=== PATIENT | female | born 1935 | race Caucasian/White ===

== ENCOUNTER 2017-06-11 16:02 | Inpatient (IN) ==
[2017-06-11] MEDS ORDERED: NS 1,000 ML IV ONE (16:16)
--- NOTE | 2017-06-11 16:41 | Diag Imaging Result Doc PS360 ---
EXAM: HEAD W/O CONTRAST HISTORY: left lower vision loss TECHNIQUE: Dose reduction protocol COMPARISON: None. FINDINGS: No parenchymal hemorrhage. No epidural or subdural hematoma. No subarachnoid hemorrhage. No mass identified on this noncontrasted exam. No hydrocephalus. There is diffuse atrophy. Chronic microvascular ischemic changes with old lacunes. No sinus opacification. IMPRESSION: 1.No hemorrhage 2.Atrophy with old lacunes. Electronically signed by Saad Cho 06/11/2017 4:39 PM
--- NOTE | 2017-06-11 16:42 | Diag Imaging Result Doc PS360 ---
EXAM: CHEST-2 VIEWS HISTORY: CP TECHNIQUE: COMPARISON: None. FINDINGS: The lungs are well expanded. The heart is not enlarged. The vessels are not distended. There are no infiltrates. No pleural effusions. IMPRESSION: No acute abnormality. Electronically signed by Saad Cho 06/11/2017 4:39 PM
[2017-06-11] MEDS ORDERED: ASPIRIN PO ONE (16:46)
--- NOTE | 2017-06-11 16:56 | PROVIDER DOCUMENTATION ---
HPI-General Adult - General Chief Complaint: Stroke-Like Symptoms Stated Complaint: stroke like sx Time Seen by Provider: 06/11/17 16:15 Source: patient Allergies/Adverse Reactions: Patient Allergies Allergy/AdvReac Type Severity Reaction Status Date / Time codeine AdvReac HEADACHE Verified 06/11/17 16:54 Home Medications: Home Medication List Medication Instructions Recorded Confirmed Last Taken Type Cyanocobalamin (Vitamin B-12) 2,500 mcg PO DAILY 06/11/17 06/11/17 06/11/17 History [Vitamin B12] Indapamide 2.5 mg PO DAILY 06/11/17 06/11/17 06/11/17 History Levothyroxine [Synthroid] 125 mcg PO DAILY 06/11/17 06/11/17 06/11/17 History Lisinopril 40 mg PO BID 06/11/17 06/11/17 06/11/17 History Metoprolol [Lopressor] 50 mg PO BID 06/11/17 06/11/17 06/11/17 History PRAVAstatin [Pravachol] 40 mg PO DAILY 06/11/17 06/11/17 06/11/17 History - History of Present Illness -Gen Adult Nature of Presenting Problems: 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 She denies headache, cp, dyspnea, paresthesias, gait problems, injury. Eye history of cataracts. No CVA history. Location of Pain/Injury: reports: none Review of Systems - Adult - REVIEW OF SYSTEMS - ADULT Constitutional: reports: no symptoms reported. denies: chills, fatique Eyes: reports: see HPI, decreased vision. denies: double vision, eye pain Ears, Nose, Mouth & Throat: reports: no symptoms reported Cardiovascular: reports: no symptoms reported. denies: chest pain, orthopnea, syncope Respiratory: reports: no symptoms reported. denies: cough, wheezing Gastrointestinal: reports: no symptoms reported Genitourinary: reports: no symptoms reported Musculoskeletal: reports: no symptoms reported Integumentary: reports: no symptoms reported Neurological: reports: no symptoms reported. denies: ataxia, headache/migraines , loss of balance, numbness, paresthesia, syncope Psychiatric: reports: no symptoms reported Endocrine: reports: no symptoms reported Hematologic/Lymphatic: reports: no symptoms reported Allergic/Immunologic: reports: no symptoms reported All Other Systems: Reviewed and Negative Past History - Adult - PAST MEDICAL HISTORY-ADULT Review of Records: reports: Old Records Reviewed, Nursing Assessment Review, Medications Reviewed, Social history reviewed & non-contributory. Major Childhood Illnesses: reports: denies history Cardiovascular: reports: HTN Respiratory: reports: denies history Gastrointestinal: reports: denies history Obstetrical/Gynecological: reports: denies history Genitourinary: reports: denies history Musculoskeletal: reports: denies history Neurological: reports: denies history Endocrine/Immune: reports: denies history Other Conditions: reports: denies history - IMMUNIZATION STATUS Childhood Immunizations: See Nurse Assessment Flu Vaccine: See Nurse Assessment - FAMILY HISTORY Family History: reviewed, not pertinent - SOCIAL HISTORY Smoking: denies Substance Use: none/never Living Situation: family Physical Exam-General - PHYSICAL EXAM-ADULT Initial Vital Signs Reviewed: Yes - CONSTITUTIONAL General Appearance: appears well, alert, no apparent distress - EYES Eyes: PERRL/EOMI, pink conjunctivae, other (left lower visual field deficit in both eyes.). negative: anisocoria, EOM palsy - HEAD, EARS, NOSE, MOUTH & THROAT HENMT: normocephalic/atraumatic - NECK Neck: non-tender - RESPIRATORY Respiratory: lungs clear, normal breath sounds - CARDIOVASCULAR Cardiovascular: normal peripheral pulses, regular rate, rhythm - LYMPHATIC Lymphatic: no adenopathy - MUSCULOSKELETAL Back Exam: normal inspection Extremity: normal range of motion, non-tender. 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 negative: abnormal gait, facial droop, focal weakness, motor weakness - PSYCHIATRIC Psych/Mental Status: normal mood/affect, oriented x 3 Progress - PLAN OF CARE/RESULTS Progress/Plan/Lab Results: Vital Signs - 8 hr 06/11/17 16:16 Temperature 98.4 F Pulse Rate 73 Respiratory Rate 16 Blood Pressure 203/60 O2 Sat by Pulse Oximetry 97 Orders Category Date Time Status Cardiac Monitoring DIRECTED Care 06/11/17 16:16 Active Saline Loc NOW Care 06/11/17 16:16 Active CHEST-2 VIEWS [RAD] Stat Exams 06/11/17 16:16 Completed HEAD W/O CONTRAST [CT] Stat Exams 06/11/17 16:16 Completed CBC WITH ELECTRONIC DIFF [HEME] Stat Lab 06/11/17 16:16 Uncollected CK PROFILE [SP CHEM] Stat Lab 06/11/17 16:16 Uncollected COMPREHENSIVE METABOLIC PANEL [CHEM] Stat Lab 06/11/17 16:16 Uncollected PROTIME WITH INR [COAG] Stat Lab 06/11/17 16:16 Uncollected PTT [COAG] Stat Lab 06/11/17 16:16 Uncollected SED RATE [HEME] Stat Lab 06/11/17 16:16 Uncollected TROPONIN T Stat Lab 06/11/17 16:16 Uncollected 0.9% Sodium Chloride Inj [Ns] 1,000 ml Med 06/11/17 16:16 Active IV 999 mls/hr Aspirin Med 06/11/17 16:46 Discontinued 325 mg PO NOW ONE EKG [EKG] Stat Ther 06/11/17 16:16 Ordered 1650: pt reports improvement in vision in right eye. Result Diagrams: 06/11/17 17:05 06/11/17 17:07 - CT/MRI 1 CT Study: Head Impression: Normal, See EMR Report CT Results: NAF - CONSULTS/PCP/HOSPITALIST Notification #1 *Consult/PCP/Hospitalist*: Dr. Venegas Time Discussed: 17:05 Reason/Comments: see pt via telemedicine. Consult Disposition: other (admit for observation further evaluation here not [facility]) Departure - Departure Date of Disposition Decision: 06/11/17 Time of Disposition Decision: 17:46 DIAGNOSIS: CVA (cerebral vascular accident) Qualifiers: CVA mechanism: unspecified Qualified Code(s): I63.9 - Cerebral infarction, unspecified Disposition: ADMITTED INPATIENT 09 Certified Medical Emergency: Emergent Condition: Stable Referrals and Follow-Ups: Devon Fierro MD [Primary Care Provider] - - Critical Care Note This patient required my direct & personal management of CC.: No
[2017-06-11 17:21] LABS: BASO% 0.8 % (0.0-0.8); EOS# 0.32 X1000 (0.0-0.7); EOS% 3.2 % (0.0-10.0); HEMATOCRIT 43.2 % (37.0-47.0); HEMOGLOBIN 14.7 g/dL (12.0-16.0); IMM GRAN# 0.02 X1000 (0.0-0.04); IMM GRAN% 0.2 % (0.0-0.5); LYMPH# 3.51 X1000 (1.2-3.4); LYMPH% 34.7 % (20.5-51.1); MANUAL DIFF NEEDED? NO; MCH 28.8 PG (27-31); MCV 84.7 FL (81-99); MONO# 1.18 X1000 (0.11-0.59); MONO% 11.7 % (1.7-9.3); MPV 9.5 FL (7.4-10.4); NEUT% 49.4 % (42.2-75.2); PLT 290 X1000 (130-400)
[2017-06-11 17:32] LABS: PROTIME 10.5 Seconds (9.2-11.7); PTT 27.8 Seconds (22.0-36.0)
[2017-06-11 17:43] LABS: CALCIUM 9.4 mg/dL (8.8-10.2); POTASSIUM 3.5 mmol/L (3.5-5.1); TOTAL BILIRUBIN 0.99 mg/dL (0.20-1.00); TOTAL PROTEIN 6.4 g/dL (6.3-8.3)
--- NOTE | 2017-06-11 17:45 | ED EKG INTERP ---
This chart was entered by Michelle Hughes Scribe, acting as scribe for Martinez Guzmán MD. EKG Interpretation - EKG Time of EKG reading by physician:: 16:52 EKG Read and Signed by:: Martinez Guzmán EKG Interpretation (*Must complete 3 of following elements*): Abnormal Rate: 60 Rhythm: normal sinus rhythm Comments: RBBB; inferior infarct, age undetermined This chart was documented by the indicated scribe, (Michlele Hughes Scribe) and accurately reflects the services I performed and decisions made by me, Martinez Guzmán MD, as attested by the provider's signature.
[2017-06-11 18:39] LABS: SED RATE 5 mm/hr (0-20)
[2017-06-11] MEDS ORDERED: LOZOL PO SCH (18:48)
--- NOTE | 2017-06-11 19:53 | HISTORY AND PHYSICAL ---
HISTORY OF PRESENT ILLNESS: States that today she noticed she had poor vision in the left lower quadrant both eyes. 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 She states that it is improving. Eye exam was unremarkable and appears to suspect some ischemia to the occipital lobe that corresponds to the left lower visual field. She did not have any head pain. PAST MEDICAL HISTORY: Really no significant past medical history other than hypertension. I think she has had some hypercholesterolemia. PAST SURGICAL HISTORY: She has had multiple surgeries. She has had both ears the inner ear replaced in [place], I believe. She has had tonsillectomy. She has had a hysterectomy. She has had her gallbladder out. ALLERGIES: She is allergic to codeine. It just makes her feel funny. FAMILY HISTORY: Pretty noncontributory. SOCIAL HISTORY: Negative for alcohol or tobacco. REVIEW OF SYSTEMS: General: No weight gain or loss. No fever or chills. HEENT: Unremarkable. Respiratory: No increased work of breathing or dyspnea. Cardiovascular: No chest pain or tachy palpitations. Gastrointestinal, genitourinary: Unremarkable. Neurologic: Just the visual change. No trouble with vertigo. No other neurologic complaints. IMAGING: CT scan without contrast no hemorrhage, atrophy or lacunes. Chest x-ray from today no acute abnormality. Blood pressures have been running in the 170s to 190s. PHYSICAL EXAMINATION: VITAL SIGNS: Afebrile. Temperature 98.4 degrees, pulse 78, respirations 17, blood pressure 190/71. O2 saturation 93%. Height 5 feet 2 inches. HEENT: Pupils are equal and round. LUNGS: Clear in all lung ramos. CARDIOVASCULAR: Regular rhythm and rate without murmur or S3. ABDOMEN: Soft, nontender, nondistended. Positive bowel sounds. No hepatosplenomegaly. EXTREMITIES: No clubbing, cyanosis, or edema. LABORATORY DATA: White blood cell count 90860, hematocrit 43, platelet count 290,000. Sodium 135, potassium 3.5, chloride 96, bicarb 24, BUN 22, creatinine 1.1. Blood sugar 105. Calculated osmolality 274. Transaminases low, AST 18, ALT 15, alkaline phosphatase 130. Troponin less than 0.01. CPK is 144, albumin 4.0, Pro time 10.5, PTT 23. ASSESSMENT/PLAN: Left lower quadrant visual deficit. Concerned about some ischemia to the occipital lobe which did correspond to the right upper occipital lobe. CT scan unremarkable. Her vision is improving. I am going to have some tolerance for blood pressure staying 140s to 160, but I would like to get it down a little bit and we will put her on some aspirin. May even try Plavix at some point. I think we will start with aspirin. I may give her a single dose of Lovenox as well tonight. cc: Varinder Trejo MD
[2017-06-11] MEDS: PRINIVIL PO SCH (20:54)
[2017-06-11] MEDS: NS + KCL 20 MEQ 1,000 ML IV SCH (20:55)
[2017-06-11] MEDS: LOVENOX SUBQ SCH (20:55)
[2017-06-11] MEDS: LOPRESSOR PO SCH (20:55)
[2017-06-12] MEDS: SYNTHROID PO SCH ×2 (05:19→06:14)
[2017-06-12] MEDS: NS + KCL 20 MEQ 1,000 ML IV SCH ×2 (05:19→10:59)
[2017-06-12] MEDS: LOVENOX SUBQ SCH ×2 (05:19→06:14)
[2017-06-12 06:08] LABS: MANUAL DIFF NEEDED? NO
[2017-06-12 06:40] LABS: BASO% 0.6 % (0.0-0.8); EOS% 4.1 % (0.0-10.0); HEMOGLOBIN 13.6 g/dL (12.0-16.0); LYMPH# 2.95 X1000 (1.2-3.4); LYMPH% 40.6 % (20.5-51.1); MCH 28.5 PG (27-31); MCHC 33.2 g/dL (33-37); MCV 85.8 FL (81-99); MONO# 0.76 X1000 (0.11-0.59); MONO% 10.5 % (1.7-9.3); MPV 9.7 FL (7.4-10.4); NEUT% 44.2 % (42.2-75.2); PLT 244 X1000 (130-400); RBC 4.78 XMIL (4.2-5.4)
[2017-06-12 06:57] LABS: ALBUMIN 3.7 g/dL (3.5-5.0); POTASSIUM 3.8 mmol/L (3.5-5.1); PROTIME 10.5 Seconds (9.2-11.7); PTT 29.7 Seconds (22.0-36.0); TOTAL BILIRUBIN 1.33 mg/dL (0.20-1.00); TOTAL PROTEIN 5.8 g/dL (6.3-8.3)
[2017-06-12] MEDS ORDERED: VITAMIN B-12 PO SCH (09:00)
[2017-06-12] MEDS ORDERED: PRAVACHOL PO SCH (09:00)
[2017-06-12] MEDS ORDERED: LOZOL PO SCH (09:00)
--- NOTE | 2017-06-12 09:27 | Diag Imaging Result Doc PS360 ---
EXAM: MRI BRAIN W/O CONTRAST HISTORY: CVA TECHNIQUE: MRI of the brain; T1 and axial and sagittal, T2, FLAIR, DWI axial and gradient echo coronal COMMENT: There are multiple punctate areas of increased T2-weighted signal intensity in the subcortical and periventricular white matter particularly in the frontal lobes. There is a small lacunae in the left basal ganglia. There is restricted diffusion in the medial posterior left parietal cortex and also in the subcortical zone of the right occipital lobe posteriorly. There is no evidence of bleed or mass effect. No abnormal fluid collections are present. IMPRESSION: Subacute infarctions in two contralateral vascular territories as described above. This may result from emboli arising from the aorta or left cardiac chambers. Chronic ischemic microvascular white matter changes as described above. Electronically signed by Hugo Guerrero 06/12/2017 9:25 AM
--- NOTE | 2017-06-12 09:29 | Diag Imaging Result Doc PS360 ---
EXAM: MRI C SPINE W/WO CONTRAST HISTORY: CVA TECHNIQUE: MRI of the cervical spine with and without gadolinium; T1, T2, STIR and post gadolinium-enhanced T1 sagittal, T1, T2 and post gadolinium T1 axial. COMMENT: There is no evidence of acute bony signal abnormality. No intrathecal masses or signal abnormalities are present and there is no evidence of abnormal gadolinium enhancement in the cord. At the C2-3 level there is no spinal or foraminal stenosis. At C3-4 there is no spinal or foraminal stenosis. At C4-5 there is mild disc bulge without evidence of spinal or foraminal stenosis. At C5-6 there is no spinal or foraminal stenosis. At C6-7 there is mild disc bulge without evidence of significant spinal or foraminal stenosis. At C7-T1 there is no spinal or foraminal stenosis. IMPRESSION: Minimal degenerative disc disease as described above. Electronically signed by Hugo Guerrero 06/12/2017 9:27 AM
[2017-06-12] MEDS: PRINIVIL PO SCH (10:15)
[2017-06-12] MEDS: LOPRESSOR PO SCH (10:15)
--- NOTE | 2017-06-12 13:34 | ECHO REPORT ---
ORDER DATE: 06/12/2017 ECHOCARDIOGRAPHIC MEASUREMENTS: 1. Interventricular septum 1.1. 2. Left ventricular posterior wall 1.1. 3. Diastolic diameter 5.3. 4. Left atrium 4.6. 5. Aorta 3.1. INTERPRETATION/FINDINGS: 1. Normal left ventricular cavity size. Estimated ejection fraction of 65%. 2. Aortic valve leaflets are trileaflet. 3. Mitral valve was normal. 4. Tricuspid valve was normal. 5. There is left atrial enlargement. 6. There is mild to moderate mitral regurgitation. 7. Mild tricuspid regurgitation. Peak velocity across the tricuspid valve was 2.6 m/sec. 8. Peak velocity across the aortic valve less than 2 m/sec. There is no aortic stenosis or regurgitation. 9. There is no pericardial effusion or obvious intracardiac mass or thrombus seen. cc: MD Varinder Preston MD
[2017-06-12 15:07] VITALS: BP 143/63
--- NOTE | 2017-06-13 13:33 | DISCHARGE SUMMARY ---
ADMISSION DATE: 06/11/2017 DISCHARGE DATE: 06/12/2017 HOSPITAL COURSE: Ms. Camilo was admitted yesterday by me, 82-year-old, followed by Dr. Devon Fierro. She states that she had lost her vision in the left lower quadrant, both eyes. Air Grinder examined. Eyes looked good. Retinal artery looked good, and so we put her in. Her vision slowly improved. We did put her on some aspirin, and I gave her some low dose Lovenox. MRI of cervical spine and the brain was done. MRI of the brain showed subacute infarctions in the 2 contralateral vascular territories. She had multiple punctate areas of increased T2-weighted signal intensity in the subcortical and periventricular white matter, particularly in the frontal lobes. There was small lacune in the left basal ganglia. There was restricted diffusion in the medial posterior left parietal cortex. Also on the subcortical zone of the right occipital lobe posteriorly. No evidence of bleed or mass effect. Clinically improved. Had her on aspirin. Blood pressures were doing well. They range between 137 and 160 over 50 to 94. [place] she could go home. DISCHARGE MEDICATIONS: She will take her B12 2500 mcg daily, Lozol 2.5 mg a day, Synthroid 125 mcg daily, Prinivil 40 mg b.i.d., Lopressor 50 mg b.i.d., Pravachol 40 mg a day, no potassium. Follow up with primary care. I will let her go home. cc: Varinder Trejo MD
--- NOTE | 2017-06-17 19:52 | Carotid Study ---
DATE: 06/12/2017 PROCEDURE: Carotid duplex imaging. REFERRING PHYSICIAN: Dr. Trejo INTERPRETING PHYSICIAN: Dr. Rodríguez TECH: Martinez INDICATIONS: Change in vision. OBSERVED DATA RIGHT LEFT Brachial Blood Pressure Carotid Pulse Bruits: Carotid/Sub DIAGRAM OF ULTRASOUND IMAGING R L RIGHT INT EXT INT EXT LEFT Ghassan (cm/s) Ghassan (cm/s) Subclavian 62/0 Subclavian 86/0 CCA Proximal 59/9 CCA Proximal 73/15 CCA Distal 63/15 CCA Distal 71/8 Bulb 39/8 Bulb 59/14 ICA Proximal 45/9 ICA Proximal 43/9 ICA Mid 46/13 ICA Mid 48/15 ICA Distal 45/14 ICA Distal 81/25 ECA 47/0 ECA 38/4 Vertebral 50/11 Vertebral 55/12 ICA/CCA Ratio 0.7 ICA/CCA Ratio 1.1 % Stenosis 0-39% % Stenosis 0-39% FINDINGS: No significant atherosclerotic plaque in either carotid system. There is antegrade vertebral flow bilaterally. INTERPRETATION: Unremarkable carotid imaging study. cc: MD Varinder Batista MD [facility]
== END 2017-06-12 16:04 | disposition home or self-care (01) ==
LOC: ED 16:02 → 4N 18:16
PROVIDERS: ATTEND Emergency Medicine